=== PATIENT | male | born 1975 | race Caucasian/White ===

== ENCOUNTER 2020-07-25 16:11 | Emergency (ER) | payer MEDICAID ==
[~2020-07-25] VITALS: Ht 182.9 cm; Wt 102.3 kg
[2020-07-25 16:18] VITALS: BP 167/112
== END 2020-07-25 16:58 ==
LOC: ER 16:12
DX: F10.129 Alcohol abuse with intoxication, unspecified (principal); G89.29 Other chronic pain; Z98.890 Other specified postprocedural states; Z72.89 Other problems related to lifestyle; V87.7XXA Person injured in collision between other specified motor vehicles (traffic), initial encounter; Y93.89 Activity, other specified; Y92.89 Other specified places as the place of occurrence of the external cause; Y99.8 Other external cause status; Y90.9 Presence of alcohol in blood, level not specified
CPT/HCPCS: 99283

== ENCOUNTER 2022-06-09 08:17 | Emergency (ER) | payer MEDICAID ==
[~2022-06-09] VITALS: Ht 182.9 cm; Wt 115.9 kg
[2022-06-09 08:17] VITALS: BP 165/85
[~2022-06-09 08:17] MED LIST: NO HOME MEDS
== END 2022-06-09 09:43 | disposition home or self-care (01) ==
LOC: ER 08:17
DX: Z00.00 Encounter for general adult medical examination without abnormal findings (principal); G89.29 Other chronic pain
CPT/HCPCS: 99281

== ENCOUNTER 2024-10-30 09:07 | Emergency (ER) | payer MEDICAID ==
[~2024-10-30] VITALS: Ht 182.9 cm; Wt 120.8 kg
[2024-10-30 09:23] VITALS: BP 160/109; PULSE 97; RESP 18; TEMP 97.8; O2SAT 97
== END 2024-10-30 10:50 | disposition home or self-care (01) ==
LOC: ER 09:07
DX: Z02.89 Encounter for other administrative examinations (principal); F32.A Depression, unspecified; G89.29 Other chronic pain; F17.290 Nicotine dependence, other tobacco product, uncomplicated; Z98.890 Other specified postprocedural states
CPT/HCPCS: 99281